=== PATIENT | female | born 1975 | race Hispanic/Latino ===

== ENCOUNTER 2017-02-09 16:37 | Emergency (ER) | payer SELFPAY | END 2017-02-09 18:30 | disposition home or self-care (01) | LOC: NAV ERS 16:37 | DX: J11.1 Influenza due to unidentified influenza virus with other respiratory manifestations (principal); J45.909 Unspecified asthma, uncomplicated; H69.81 Other specified disorders of Eustachian tube, right ear; F32.9 Major depressive disorder, single episode, unspecified; Z87.891 Personal history of nicotine dependence; Z79.2 Long term (current) use of antibiotics; Z79.52 Long term (current) use of systemic steroids; Z79.891 Long term (current) use of opiate analgesic; Z79.899 Other long term (current) drug therapy | CPT/HCPCS: J7620 ==

== ENCOUNTER 2017-04-19 11:38 | Emergency (ER) | payer SELFPAY | END 2017-04-19 12:45 | disposition home or self-care (01) | LOC: NAV ERS 11:38 | DX: J20.9 Acute bronchitis, unspecified (principal); F32.9 Major depressive disorder, single episode, unspecified; F17.200 Nicotine dependence, unspecified, uncomplicated; Z79.899 Other long term (current) drug therapy | CPT/HCPCS: 87081; 87430; 99283 ==

== ENCOUNTER 2017-06-10 16:47 | Emergency (ER) | payer SELFPAY ==
[2017-06-10] MEDS ORDERED: Orphenadrine Citrate 60 MG/2 ML VIAL ONE (17:08)
[2017-06-10] MEDS ORDERED: Ibuprofen 800 MG TAB ONE (17:09)
--- NOTE | 2017-06-10 18:31 | RAD ---
LUMBAR SPINE TWO VIEWS: 06/10/17 HISTORY: Back pain radiating to the left leg. FINDINGS/IMPRESSION: Mild degenerative changes are present. No fracture or dislocation or bony destruction is seen. POS: [facility]
== END 2017-06-10 17:48 | disposition home or self-care (01) ==
LOC: NAV ERS 16:47
DX: M54.5 Low back pain (principal); F32.9 Major depressive disorder, single episode, unspecified; F17.200 Nicotine dependence, unspecified, uncomplicated
CPT/HCPCS: 72100; 96372; J2360

== ENCOUNTER 2017-06-17 09:31 | Emergency (ER) | payer SELFPAY ==
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
== END 2017-06-17 10:30 | disposition home or self-care (01) ==
LOC: NAV ERS 09:31
DX: S61.227A Laceration with foreign body of left little finger without damage to nail, initial encounter (principal); F32.9 Major depressive disorder, single episode, unspecified; F17.210 Nicotine dependence, cigarettes, uncomplicated; Z79.899 Other long term (current) drug therapy; W25.XXXA Contact with sharp glass, initial encounter; Y93.89 Activity, other specified

== ENCOUNTER 2017-09-22 19:59 | Emergency (ER) | payer SELFPAY ==
[2017-09-22] MEDS ORDERED: Ondansetron ODT 4 MG TAB ONE (20:22)
[2017-09-22] MEDS ORDERED: Ibuprofen 800 MG TAB ONE (20:22)
[2017-09-22] MEDS ORDERED: Cyclobenzaprine 10 MG TAB ONE (20:22)
== END 2017-09-22 21:03 | disposition home or self-care (01) ==
LOC: NAV ERS 19:59
DX: S16.1XXA Strain of muscle, fascia and tendon at neck level, initial encounter (principal); G44.309 Post-traumatic headache, unspecified, not intractable; F32.9 Major depressive disorder, single episode, unspecified; F17.210 Nicotine dependence, cigarettes, uncomplicated; Z79.899 Other long term (current) drug therapy; V49.40XA Driver injured in collision with unspecified motor vehicles in traffic accident, initial encounter
CPT/HCPCS: 99283; Q0162

== ENCOUNTER 2018-03-23 16:55 | Emergency (ER) | payer OTHER, SELFPAY ==
[2018-03-23] MEDS ORDERED: Orphenadrine Citrate 60 MG/2 ML VIAL ONE (17:14)
[2018-03-23] MEDS ORDERED: Ketorolac Tromethamine 60 MG/2 ML VIAL ONE (17:15)
== END 2018-03-23 18:04 | disposition home or self-care (01) ==
LOC: NAV ERS 16:55
DX: M54.5 Low back pain (principal); F32.9 Major depressive disorder, single episode, unspecified; F17.210 Nicotine dependence, cigarettes, uncomplicated
CPT/HCPCS: 96372; J1885; J2360

== ENCOUNTER 2018-04-10 19:46 | Emergency (ER) | payer SELFPAY ==
[2018-04-10] MEDS ORDERED: Sulfameth/Trimethoprim DS 800-160mg TAB ONE (20:09)
== END 2018-04-10 20:11 | disposition home or self-care (01) ==
LOC: NAV ERS 19:46
DX: M79.644 Pain in right finger(s) (principal); G40.909 Epilepsy, unspecified, not intractable, without status epilepticus; F32.9 Major depressive disorder, single episode, unspecified; F17.210 Nicotine dependence, cigarettes, uncomplicated; Z79.899 Other long term (current) drug therapy
CPT/HCPCS: 99283

== ENCOUNTER 2020-06-21 04:57 | Emergency (ER) | payer SELFPAY ==
[2020-06-21 05:43] LABS: #Basophils 0.1 thou/uL (0.0-0.2); #Eosinphils 0.1 thou/uL (0.0-0.7); #Lymphocytes 1.9 thou/uL (1.20-3.40); #Monocytes 0.8 thou/uL (0.11-0.59); #Neutrophils 10.1 thou/uL (1.40-6.50); %Basophils 0.5 % (0.0-1.0); %Eosinophils 0.8 % (0.0-10.0); %Lymphocytes 14.4 % (21.0-51.0); %Monocytes 6.1 % (0.0-10.0); %Neutrophils 78.2 % (42.0-75.0); Hemoglobin 13.9 g/dL (12.0-16.0); Mean Corpuscular HGB CONC 31.8 g/dL (32.0-36.0); Mean Corpuscular Volume 94.4 fL (78.0-98.0); Mean Platelet Volume 6.4 fL (7.4-10.4); Platelet Count 308 thou/uL (130-400); RBC Distribution Width 11.2 % (11.5-14.5); Red Blood Cell (RBC) Count 4.64 mill/uL (4.20-5.40); White Blood Cell (WBC) Count 12.9 thou/uL (4.8-10.8)
[2020-06-21 05:45] LABS: Potassium 2.8 mmol/L (3.5-5.1)
[2020-06-21 05:47] LABS: Chloride 106 mmol/L (98-107); Sodium 139 mmol/L (136-145)
[2020-06-21 05:48] LABS: Anion Gap 27 mmol/L (10-20); Carbon Dioxide 9 mmol/L (22-29)
[2020-06-21 05:49] LABS: Albumin 4.5 g/dL (3.5-5.0); Bilirubin, Total 0.3 mg/dL (0.2-1.2); Calcium 9.6 mg/dL (7.8-10.44); Globulin 2.8 g/dL (2.4-3.5); Glucose 89 mg/dL (70-105); Protein, Total 7.3 g/dL (6.0-8.3)
[2020-06-21 05:50] LABS: Alcohol 48 mg/dL (Less than 10)
[2020-06-21 05:52] LABS: ALT (SGPT) 12 U/L (8-55); AST (SGOT) 12 U/L (5-34); Alkaline Phosphatase 82 U/L (40-110); BUN (Urea Nitrogen) 18 mg/dL (7.0-18.7); Calc. Creatinine Clearance 0 mL/min (70-130); Estimated GFR-MDRD 47
[2020-06-21] MEDS ORDERED: Sodium Bicarb 50 MEQ/50 ML Abboject 8.4% SYRINGE ONE (06:10)
[2020-06-21] MEDS ORDERED: NS 0.9% w/ 20 MEQ KCL 1,000 ML ONE (06:12)
[2020-06-21 06:16] LABS: Bilirubin Negative (Negative); Blood, Urine Large (Negative); Clarity Hazy (Clear); Glucose, Urine (Dipstick) Negative (Negative); Ketone, Urine Trace mg/dL (Negative); Leukocyte Trace (Negative); Nitrite Positive (Negative); Protein, Urine (Dipstick) 100 mg/dL (Neg-Trace); Urobilinogen 0.2 mg/dL (Less than 2); pH, Urine 5.5 (5.0-9.0)
[2020-06-21 06:17] LABS: RBC/HPF Greater than 50 HPF (0-3); Squamous Epithelial 0-3 HPF (0-3)
[2020-06-21 06:18] LABS: Bacteria/HPF 2+ HPF (None Seen)
[2020-06-21 06:21] LABS: Base Excess-Venous -8.2 mmol/L (-2.0 to 3.0); CO2 Tension (PvCO2) 33.7 mmHg (40.0-50.0); Calcium, Ionized 1.22 mmol/L (See Comments:); Chloride 104 mmol/L (98-107); Hemoglobin - Calc 15.1 g/dL (12.0-16.0); Sodium 142 mmol/L (138-145); vO2 Saturation-calc 96.2 % (60.0-85.0)
[2020-06-21 06:22] LABS: Amphetamine Detected (NotDetected); Barbiturates Screen Not Detected (NotDetected); Benzodiazepine Screen Not Detected (NotDetected); Cocaine Metabolite Screen Not Detected (NotDetected); Medtox Control Line Valid? VALID (VALID); Methadone Not Detected (NotDetected); Methamphetamine Detected (NotDetected); Opiate Screen Not Detected (NotDetected); Oxycodone Screen Not Detected (NotDetected); Phencyclidine (PCP) Not Detected (NotDetected); THC/Cannabinoid Screen Not Detected (NotDetected); Tricyclic Screen Not Detected (NotDetected)
[2020-06-21] MEDS ORDERED: Potassium Chloride 20 MEQ TAB ONE (07:06)
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
== END 2020-06-21 08:57 | disposition home or self-care (01) ==
LOC: NAV ERS 04:57
DX: E87.6 Hypokalemia (principal); E86.0 Dehydration; F15.20 Other stimulant dependence, uncomplicated; F32.9 Major depressive disorder, single episode, unspecified; F17.210 Nicotine dependence, cigarettes, uncomplicated; Z79.82 Long term (current) use of aspirin; Z79.899 Other long term (current) drug therapy
CPT/HCPCS: 70450; 80053; 80306; 80307; 81003; 81015; 82330; 82550; 82803; 84484; 85025; 93005; 96365; 96366; J3480

== ENCOUNTER 2020-06-27 10:14 | Emergency (ER) | payer OTHER, SELFPAY ==
[2020-06-27] MEDS ORDERED: Sodium Chloride 0.9% 1,000 ML ONE (10:56)
[2020-06-27] MEDS ORDERED: Ondansetron PF 4 MG/2 ML Vial ONE (10:56)
[2020-06-27] MEDS ORDERED: Ibuprofen 200 MG TAB ONE (10:56)
[2020-06-27 11:23] LABS: #Lymphocytes 1.2 thou/uL (1.20-3.40); #Monocytes 0.6 thou/uL (0.11-0.59); #Neutrophils 7.4 thou/uL (1.40-6.50); %Basophils 0.5 % (0.0-1.0); %Eosinophils 0.1 % (0.0-10.0); %Lymphocytes 12.9 % (21.0-51.0); %Monocytes 6.2 % (0.0-10.0); %Neutrophils 80.3 % (42.0-75.0); Hemoglobin 14.4 g/dL (12.0-16.0); Mean Corpuscular HGB CONC 32.4 g/dL (32.0-36.0); Mean Corpuscular Hemoglobin 30.2 pg (27.0-31.0); Mean Corpuscular Volume 93.3 fL (78.0-98.0); Platelet Count 219 thou/uL (130-400); RBC Distribution Width 11.2 % (11.5-14.5); Red Blood Cell (RBC) Count 4.78 mill/uL (4.20-5.40); White Blood Cell (WBC) Count 9.2 thou/uL (4.8-10.8)
[2020-06-27 11:32] LABS: Bilirubin Negative (Negative); Blood, Urine Moderate (Negative); Glucose, Urine (Dipstick) Negative (Negative); Ketone, Urine Negative (Negative); Leukocyte Moderate (Negative); Nitrite Positive (Negative); Protein, Urine (Dipstick) 100 mg/dL (Neg-Trace); Urobilinogen 0.2 mg/dL (Less than 2)
[2020-06-27 11:34] LABS: Clarity Cloudy (Clear)
[2020-06-27 11:35] LABS: BHCG - Serum Negative (NEGATIVE); Pregs Control Bar Appear? YES (CONTROL BAR)
--- NOTE | 2020-06-27 11:35 | RAD ---
PORTABLE CHEST: Date: 06/27/2020 PROVIDED CLINICAL HISTORY: Chest pain. FINDINGS: Comparison with 07/19/2018. Cardiac and mediastinal silhouette is within normal limits. No focal consolidation, pleural fluid, or pneumothorax apparent. IMPRESSION: No evidence for acute cardiopulmonary process. POS: [facility]
[2020-06-27 11:41] LABS: Bacteria/HPF 4+ HPF (None Seen); Squamous Epithelial 0-3 HPF (0-3); WBC/HPF Greater Than 50 HPF (0-3)
[2020-06-27 11:47] LABS: ALT (SGPT) 11 U/L (8-55); AST (SGOT) 9 U/L (5-34); Acetaminophen Less than 6.0 mcg/mL (10.0-30.0); Albumin 4.6 g/dL (3.5-5.0); Alcohol Less than 10 mg/dL (Less than 10); Alkaline Phosphatase 90 U/L (40-110); Anion Gap 16 mmol/L (10-20); BUN (Urea Nitrogen) 17 mg/dL (7.0-18.7); Bilirubin, Total 0.6 mg/dL (0.2-1.2); Calc. Creatinine Clearance 0 mL/min (70-130); Calcium 9.5 mg/dL (7.8-10.44); Chloride 101 mmol/L (98-107); Estimated GFR-MDRD 54; Globulin 2.8 g/dL (2.4-3.5); Glucose 110 mg/dL (70-105); Potassium 3.7 mmol/L (3.5-5.1); Protein, Total 7.4 g/dL (6.0-8.3); Salicylate Less than 8.0 mg/dL (15.0-30.0); Sodium 139 mmol/L (136-145)
[2020-06-27 11:53] LABS: Carbon Dioxide 26 mmol/L (22-29)
[2020-06-27 12:26] LABS: Amphetamine Detected (NotDetected); Barbiturates Screen Not Detected (NotDetected); Benzodiazepine Screen Not Detected (NotDetected); Cocaine Metabolite Screen Not Detected (NotDetected); Medtox Control Line Valid? VALID (VALID); Methadone Not Detected (NotDetected); Methamphetamine Detected (NotDetected); Opiate Screen Not Detected (NotDetected); Oxycodone Screen Not Detected (NotDetected); Phencyclidine (PCP) Not Detected (NotDetected); THC/Cannabinoid Screen Not Detected (NotDetected); Tricyclic Screen Not Detected (NotDetected)
[2020-06-29 11:53] LABS: SARS-CoV-2 MS2 Positive; SARS-CoV-2 N Gene Negative; SARS-CoV-2 S Gene Negative; SARS-CoV-2 by NAA Not Detected (NotDetected); SARS-CoV-2 orf1ab Negative
== END 2020-06-27 13:15 | disposition home or self-care (01) ==
LOC: NAV ERS 10:14
DX: J06.9 Acute upper respiratory infection, unspecified (principal); Z20.828 Contact with and (suspected) exposure to other viral communicable diseases; N39.0 Urinary tract infection, site not specified; F32.9 Major depressive disorder, single episode, unspecified; Z79.82 Long term (current) use of aspirin; Z79.899 Other long term (current) drug therapy
CPT/HCPCS: 71045; 80053; 80306; 80307; 81003; 81015; 84484; 84703; 85025; 87081; 87430; 87635; 87804; 93005; 96361; 96374; J2405; J7050; U0003

== ENCOUNTER 2020-09-20 16:30 | Emergency (ER) | payer OTHER, SELFPAY ==
[2020-09-20] MEDS ORDERED: Mag-Al Plus 1200 MG/1200 MG/120 MG/30 ML UDCUP ONE (16:45)
[2020-09-20] MEDS ORDERED: Lidocaine Viscous Sol 2% 15 ml UD Cup ONE (16:45)
== END 2020-09-20 17:53 | disposition home or self-care (01) ==
LOC: NAV ERS 16:30
DX: K29.00 Acute gastritis without bleeding (principal); F32.9 Major depressive disorder, single episode, unspecified; F17.210 Nicotine dependence, cigarettes, uncomplicated; Z71.6 Tobacco abuse counseling; Z86.73 Personal history of transient ischemic attack (TIA), and cerebral infarction without residual deficits
CPT/HCPCS: 99406

== ENCOUNTER 2020-09-26 12:03 | Emergency (ER) | payer SELFPAY ==
[2020-09-26] MEDS ORDERED: Silver Sulfadiazine 50 GM TUBE ONE ×2 (12:31→12:32)
== END 2020-09-26 12:42 | disposition home or self-care (01) ==
LOC: NAV ERS 12:03
DX: T22.212A Burn of second degree of left forearm, initial encounter (principal); F32.9 Major depressive disorder, single episode, unspecified; F17.210 Nicotine dependence, cigarettes, uncomplicated; Z86.73 Personal history of transient ischemic attack (TIA), and cerebral infarction without residual deficits; Z79.899 Other long term (current) drug therapy; X12.XXXA Contact with other hot fluids, initial encounter
CPT/HCPCS: 16020

== ENCOUNTER 2020-10-09 16:24 | Emergency (ER) | payer SELFPAY ==
[2020-10-10 20:45] LABS: SARS-CoV-2 MS2 Positive; SARS-CoV-2 N Gene Negative; SARS-CoV-2 S Gene Negative; SARS-CoV-2 by NAA Not Detected (NotDetected); SARS-CoV-2 orf1ab Negative
== END 2020-10-09 17:45 | disposition home or self-care (01) ==
LOC: NAV ERS 16:24
DX: R11.2 Nausea with vomiting, unspecified (principal); Z20.828 Contact with and (suspected) exposure to other viral communicable diseases; F32.9 Major depressive disorder, single episode, unspecified; F17.210 Nicotine dependence, cigarettes, uncomplicated
CPT/HCPCS: 87635; 99283; U0003

== ENCOUNTER 2022-03-03 15:27 | Emergency (ER) | payer OTHER, SELFPAY ==
[~2022-03-03 15:27] MED LIST: Iopamidol 370 76% 100 ML VIAL ONE
[2022-03-03 16:05] LABS: #Eosinphils 0.2 thou/uL (0.0-0.7); #Lymphocytes 1.8 thou/uL (1.20-3.40); #Monocytes 0.4 thou/uL (0.11-0.59); #Neutrophils 4.3 thou/uL (1.40-6.50); %Basophils 0.7 % (0.0-1.0); %Eosinophils 3.2 % (0.0-10.0); %Lymphocytes 26.8 % (21.0-51.0); %Neutrophils 63.4 % (42.0-75.0); Hemoglobin 13.4 g/dL (12.0-16.0); Mean Corpuscular Hemoglobin 29.2 pg (27.0-31.0); Mean Corpuscular Volume 94.2 fL (78.0-98.0); Mean Platelet Volume 6.2 fL (7.4-10.4); Platelet Count 369 thou/uL (130-400); RBC Distribution Width 12.4 % (11.5-14.5); Red Blood Cell (RBC) Count 4.58 mill/uL (4.20-5.40); White Blood Cell (WBC) Count 6.8 thou/uL (4.8-10.8)
[2022-03-03 16:15] LABS: BHCG - Serum Negative (NEGATIVE); Pregs Control Bar Appear? YES (CONTROL BAR)
[2022-03-03 16:25] LABS: ALT (SGPT) 24 U/L (8-55); AST (SGOT) 17 U/L (5-34); Albumin 3.9 g/dL (3.5-5.0); Alkaline Phosphatase 88 U/L (40-110); Anion Gap 14 mmol/L (10-20); BUN (Urea Nitrogen) 19 mg/dL (7.0-18.7); Bilirubin, Total 0.4 mg/dL (0.2-1.2); Calc. Creatinine Clearance 0 mL/min (70-130); Calcium 9.2 mg/dL (7.8-10.44); Carbon Dioxide 24 mmol/L (22-29); Chloride 108 mmol/L (98-107); Globulin 2.7 g/dL (2.4-3.5); Glucose 105 mg/dL (70-105); Potassium 3.2 mmol/L (3.5-5.1); Protein, Total 6.6 g/dL (6.0-8.3); Sodium 143 mmol/L (136-145)
[2022-03-03 16:26] LABS: Acetaminophen Less than 10.0 mcg/mL (10.0-30.0); Alcohol Less than 10 mg/dL (Less than 10); Salicylate Less than 8.0 mg/dL (15.0-30.0)
[2022-03-03 17:00] LABS: Bilirubin Small (Negative); Blood, Urine Large (Negative); Glucose, Urine (Dipstick) Negative (Negative); Ketone, Urine Trace mg/dL (Negative); Leukocyte Negative (Negative); Nitrite Positive (Negative); Protein, Urine (Dipstick) 30 mg/dL (Neg-Trace)
[2022-03-03 17:10] LABS: Amphetamine Detected (NotDetected); Barbiturates Screen Not Detected (NotDetected); Benzodiazepine Screen Not Detected (NotDetected); Cocaine Metabolite Screen Not Detected (NotDetected); Medtox Control Line Valid? VALID (VALID); Methadone Not Detected (NotDetected); Methamphetamine Detected (NotDetected); Opiate Screen Not Detected (NotDetected); Oxycodone Screen Not Detected (NotDetected); Phencyclidine (PCP) Not Detected (NotDetected); THC/Cannabinoid Screen Not Detected (NotDetected); Tricyclic Screen Not Detected (NotDetected)
[2022-03-03 17:12] LABS: Clarity Hazy (Clear)
[2022-03-03 17:13] LABS: Specific Gravity, Urine 1.031 (1.002-1.036)
[2022-03-03 17:15] LABS: Bacteria/HPF 1+ HPF (None Seen); Mucous/LPF 1+ LPF (<2+); RBC/HPF 0-3 HPF (0-3); Squamous Epithelial 0-3 HPF (0-3); WBC/HPF 0-3 HPF (0-3)
[2022-03-03 21:37] LABS: Free T4 (Free Thyroxine) 1.16 ng/dL (0.70-1.48)
== END 2022-03-03 17:26 | disposition home or self-care (01) ==
LOC: NAV ERS 15:27
DX: R55 Syncope and collapse (principal); E05.90 Thyrotoxicosis, unspecified without thyrotoxic crisis or storm; E04.1 Nontoxic single thyroid nodule; F41.0 Panic disorder [episodic paroxysmal anxiety]; F17.210 Nicotine dependence, cigarettes, uncomplicated
CPT/HCPCS: 70450; 70492; 80053; 80306; 80307; 81003; 81015; 84439; 84443; 84479; 84481; 84484; 84703; 85025; 93005; 94760; Q9967

== ENCOUNTER 2022-08-01 21:30 | Emergency (ER) | payer SELFPAY | END 2022-08-01 22:27 | disposition home or self-care (01) | LOC: NAV ERS 21:30 | DX: R05.9 Cough, unspecified (principal); R06.02 Shortness of breath; F17.210 Nicotine dependence, cigarettes, uncomplicated | CPT/HCPCS: 99283 ==

== ENCOUNTER 2022-09-08 02:27 | Emergency (ER) | payer SELFPAY ==
[2022-09-08] MEDS ORDERED: Mag-Al Plus 1200 MG/1200 MG/120 MG/30 ML UDCUP ONE (02:54)
[2022-09-08] MEDS ORDERED: Pantoprazole 40 MG VIAL ONE (02:54)
[2022-09-08] MEDS ORDERED: Lidocaine Viscous Sol 2% 15 ml UD Cup ONE (02:54)
[2022-09-08 03:00] LABS: #Basophils 0.1 thou/uL (0.0-0.2); #Eosinphils 0.3 thou/uL (0.0-0.7); #Lymphocytes 2.7 thou/uL (1.20-3.40); #Monocytes 0.6 thou/uL (0.11-0.59); #Neutrophils 5.3 thou/uL (1.40-6.50); %Basophils 0.8 % (0.0-1.0); %Eosinophils 2.9 % (0.0-10.0); %Lymphocytes 30.7 % (21.0-51.0); %Monocytes 6.2 % (0.0-10.0); %Neutrophils 59.4 % (42.0-75.0); Hemoglobin 13.7 g/dL (12.0-16.0); Mean Corpuscular HGB CONC 32.7 g/dL (32.0-36.0); Mean Corpuscular Hemoglobin 30.7 pg (27.0-31.0); Mean Corpuscular Volume 93.8 fL (78.0-98.0); Mean Platelet Volume 6.4 fL (7.4-10.4); Platelet Count 300 thou/uL (130-400); RBC Distribution Width 11.8 % (11.5-14.5); Red Blood Cell (RBC) Count 4.46 mill/uL (4.20-5.40); White Blood Cell (WBC) Count 8.8 thou/uL (4.8-10.8)
[2022-09-08 03:10] LABS: Bilirubin Negative (Negative); Blood, Urine Trace (Negative); Clarity Clear (Clear); Glucose, Urine (Dipstick) Negative (Negative); Ketone, Urine Negative (Negative); Leukocyte Negative (Negative); Nitrite Negative (Negative); Protein, Urine (Dipstick) Negative (Neg-Trace); Specific Gravity, Urine 1.025 (1.005-1.030); Urobilinogen 0.2 mg/dL (Less than 2)
[2022-09-08 03:12] LABS: Pregnancy Test - Urine (BHCG) Negative (Negative); Pregu Control Background? CLEAR/WHITE (CLR/WHITE); Pregu Control Bar Appear? YES (CONTROL BAR); Specific Gravity 1.025 (1.002-1.036)
[2022-09-08 03:15] LABS: ALT (SGPT) 12 U/L (8-55); AST (SGOT) 12 U/L (5-34); Albumin 3.9 g/dL (3.5-5.0); Alkaline Phosphatase 77 U/L (40-110); Anion Gap 16 mmol/L (10-20); BUN (Urea Nitrogen) 16 mg/dL (7.0-18.7); Bilirubin, Total 0.2 mg/dL (0.2-1.2); Calc. Creatinine Clearance 0 mL/min (70-130); Calcium 8.4 mg/dL (7.8-10.44); Carbon Dioxide 22 mmol/L (22-29); Chloride 107 mmol/L (98-107); Estimated GFR 96; Globulin 2.3 g/dL (2.4-3.5); Glucose 94 mg/dL (70-105); Lipase 23 U/L (8-78); Potassium 3.8 mmol/L (3.5-5.1); Protein, Total 6.2 g/dL (6.0-8.3); Sodium 141 mmol/L (136-145)
[2022-09-08 03:16] LABS: Squamous Epithelial 0-3 HPF (0-3); WBC/HPF 0-3 HPF (0-3)
[2022-09-08 03:17] LABS: Bacteria/HPF 2+ HPF (None Seen); Triple Phosphate Crystal Rare HPF (None Seen)
[2022-09-08] MEDS ORDERED: Sucralfate 1 GM TAB ONE (03:28)
== END 2022-09-08 03:37 | disposition home or self-care (01) ==
LOC: NAV ERS 02:27
DX: K29.00 Acute gastritis without bleeding (principal); F17.210 Nicotine dependence, cigarettes, uncomplicated
CPT/HCPCS: 80053; 81003; 81015; 81025; 83690; 84484; 85025; 93005; 94760; 96374; C9113

== ENCOUNTER 2023-02-25 23:14 | Emergency (ER) | payer SELFPAY ==
[2023-02-26] MEDS ORDERED: Ondansetron ODT 4 MG TAB ONE
[2023-02-26] MEDS ORDERED: Ibuprofen 800 MG TAB ONE
== END 2023-02-26 00:18 | disposition home or self-care (01) ==
LOC: NAV ERS 23:14
DX: B34.9 Viral infection, unspecified (principal)
CPT/HCPCS: Q0162

== ENCOUNTER 2023-03-26 08:49 | Emergency (ER) | payer SELFPAY ==
[2023-03-26] MEDS ORDERED: Lidocaine 1% (PF) 30 ML VIAL ONE (09:20)
[2023-03-26] MEDS ORDERED: Naproxen 500 MG TAB ONE (09:20)
[2023-03-26] MEDS ORDERED: Sulfameth/Trimethoprim DS 800-160mg TAB ONE (09:20)
== END 2023-03-26 10:04 | disposition home or self-care (01) ==
LOC: NAV ERS 08:49
DX: L03.012 Cellulitis of left finger (principal); I10 Essential (primary) hypertension; F17.210 Nicotine dependence, cigarettes, uncomplicated
CPT/HCPCS: 10060; 36415; 87070; 87205; J2001

== ENCOUNTER 2023-10-10 06:51 | Emergency (ER) | payer SELFPAY ==
[2023-10-10 08:22] LABS: #Eosinphils 0.1 thou/uL (0.0-0.7); #Lymphocytes 1.9 thou/uL (1.20-3.40); #Monocytes 0.5 thou/uL (0.11-0.59); #Neutrophils 5.1 thou/uL (1.40-6.50); %Basophils 0.6 % (0.0-1.0); %Eosinophils 1.6 % (0.0-10.0); %Lymphocytes 24.4 % (21.0-51.0); %Monocytes 6.3 % (0.0-10.0); %Neutrophils 67.1 % (42.0-75.0); Hemoglobin 14.6 g/dL (12.0-16.0); Mean Corpuscular HGB CONC 33.9 g/dL (32.0-36.0); Mean Corpuscular Hemoglobin 31.1 pg (27.0-31.0); Mean Corpuscular Volume 91.8 fl (78.0-98.0); Mean Platelet Volume 6.1 fL (7.4-10.4); Platelet Count 263 10x3/uL (130-400); RBC Distribution Width 11.8 % (11.5-14.5); Red Blood Cell (RBC) Count 4.69 mill/uL (4.20-5.40); White Blood Cell (WBC) Count 7.6 10x3/uL (4.8-10.8)
[2023-10-10 08:26] LABS: Bilirubin Negative (Negative); Blood, Urine Small (Negative); Clarity Clear (Clear); Glucose, Urine (Dipstick) Negative (Negative); Ketone, Urine Negative (Negative); Leukocyte Negative (Negative); Nitrite Negative (Negative); Protein, Urine (Dipstick) Negative (Neg-Trace)
[2023-10-10 08:35] LABS: ALT (SGPT) 17 U/L (8-55); AST (SGOT) 15 U/L (5-34); Albumin 4.2 g/dL (3.5-5.0); Alkaline Phosphatase 79 U/L (40-110); Anion Gap 13 mmol/L (10-20); BUN (Urea Nitrogen) 12 mg/dL (7.0-18.7); Bilirubin, Total 0.4 mg/dL (0.2-1.2); Calc. Creatinine Clearance 0 mL/min (70-130); Carbon Dioxide 23 mmol/L (22-29); Chloride 107 mmol/L (98-107); Estimated GFR 88; Glucose 93 mg/dL (70-105); Potassium 3.9 mmol/L (3.5-5.1); Protein, Total 7.2 g/dL (6.0-8.3); Sodium 139 mmol/L (136-145)
[2023-10-10] MEDS ORDERED: Sodium Chloride 0.9% 1,000 ML ONE (08:46)
[2023-10-10] MEDS ORDERED: Morphine 4 MG/ML VIAL ONE (08:46)
[2023-10-10 08:50] LABS: Specific Gravity, Urine 1.025 (1.002-1.036)
[2023-10-10 08:55] LABS: Pregnancy Test - Urine (BHCG) Negative (Negative); Pregu Control Background? CLEAR/WHITE (CLR/WHITE); Pregu Control Bar Appear? YES (CONTROL BAR); Specific Gravity 1.025 (1.002-1.036)
[2023-10-10 08:57] LABS: Bacteria/HPF 1+ HPF (None Seen); CAUTI Indications for Culture Pelvic or flank pain; RBC/HPF 0-3 HPF (0-3); WBC/HPF None Seen HPF (0-3)
[2023-10-10 08:58] LABS: Urine Culture Reflex No No
== END 2023-10-10 10:10 | disposition home or self-care (01) ==
LOC: NAV ERS 06:51
DX: M54.31 Sciatica, right side (principal); R10.9 Unspecified abdominal pain; F17.210 Nicotine dependence, cigarettes, uncomplicated
CPT/HCPCS: 74177; 80053; 81001; 81025; 85025; 96374; J2270; J7050

== ENCOUNTER 2024-10-18 19:45 | Emergency (ER) | payer SELFPAY ==
[2024-10-18] MEDS ORDERED: Ibuprofen 200 MG TAB ONE (20:02)
[2024-10-18 20:39] LABS: #Lymphocytes 0.6 thou/uL (1.20-3.40); #Monocytes 0.4 thou/uL (0.11-0.59); #Neutrophils 3.8 thou/uL (1.40-6.50); %Basophils 0.5 % (0.0-1.0); %Eosinophils 0.8 % (0.0-10.0); %Lymphocytes 12.8 % (21.0-51.0); %Monocytes 7.8 % (0.0-10.0); %Neutrophils 78.2 % (42.0-75.0); Hematocrit 41.1 % (36.0-47.0); Hemoglobin 13.7 g/dL (12.0-16.0); Mean Corpuscular HGB CONC 33.4 g/dL (32.0-36.0); Mean Corpuscular Volume 89.8 fl (78.0-98.0); Mean Platelet Volume 5.9 fL (7.4-10.4); Platelet Count 213 10x3/uL (130-400); RBC Distribution Width 11.2 % (11.5-14.5); Red Blood Cell (RBC) Count 4.57 mill/uL (4.20-5.40); White Blood Cell (WBC) Count 4.8 10x3/uL (4.8-10.8)
[2024-10-18 20:40] LABS: BHCG - Serum Negative (NEGATIVE); Pregs Control Bar Appear? YES (CONTROL BAR)
[2024-10-18 20:45] LABS: ALT (SGPT) 100 U/L (8-55); AST (SGOT) 56 U/L (5-34); Albumin 3.9 g/dL (3.5-5.0); Alkaline Phosphatase 80 U/L (40-110); Anion Gap 15 mmol/L (10-20); BUN (Urea Nitrogen) 12 mg/dL (7.0-18.7); Bilirubin, Total 0.3 mg/dL (0.2-1.2); Calc. Creatinine Clearance 0 mL/min (70-130); Calcium 8.5 mg/dL (7.8-10.44); Carbon Dioxide 25 mmol/L (22-29); Chloride 104 mmol/L (98-107); Estimated GFR 78; Glucose 96 mg/dL (70-105); Potassium 3.8 mmol/L (3.5-5.1); Protein, Total 6.9 g/dL (6.0-8.3); Sodium 140 mmol/L (136-145)
[2024-10-18] MEDS ORDERED: guaiFENesin ER 600 MG TAB ONE (21:29)
[2024-10-18] MEDS ORDERED: methylPREDNISolone Sod Succ/PF 125 MG/2 ML VIAL ONE (21:29)
== END 2024-10-18 21:39 | disposition home or self-care (01) ==
LOC: NAV ERS 19:45
DX: J20.8 Acute bronchitis due to other specified organisms (principal); F17.210 Nicotine dependence, cigarettes, uncomplicated
CPT/HCPCS: 71046; 80053; 83605; 84703; 85025; 87040; 87428; 96374; J2919

== ENCOUNTER 2024-11-21 04:14 | Emergency (ER) | payer SELFPAY ==
[2024-11-21 04:52] LABS: #Lymphocytes 2.1 thou/uL (1.20-3.40); #Monocytes 0.6 thou/uL (0.11-0.59); %Basophils 0.3 % (0.0-1.0); %Eosinophils 0.1 % (0.0-10.0); %Lymphocytes 18.1 % (21.0-51.0); %Monocytes 4.8 % (0.0-10.0); %Neutrophils 76.7 % (42.0-75.0); Bilirubin Negative (Negative); Blood, Urine Negative (Negative); Clarity Clear (Clear); Glucose, Urine (Dipstick) Negative (Negative); Hematocrit 35.6 % (36.0-47.0); Hemoglobin 11.8 g/dL (12.0-16.0); Ketone, Urine 15 mg/dL (Negative); Leukocyte Negative (Negative); Mean Corpuscular HGB CONC 33.2 g/dL (32.0-36.0); Mean Corpuscular Volume 87.6 fl (78.0-98.0); Mean Platelet Volume 6.3 fL (7.4-10.4); Nitrite Negative (Negative); Platelet Count 278 10x3/uL (130-400); Pregnancy Test - Urine (BHCG) Negative (Negative); Pregu Control Background? CLEAR/WHITE (CLR/WHITE); Pregu Control Bar Appear? YES (CONTROL BAR); Protein, Urine (Dipstick) 30 mg/dL (Neg-Trace); RBC Distribution Width 11.1 % (11.5-14.5); Red Blood Cell (RBC) Count 4.06 mill/uL (4.20-5.40); Specific Gravity 1.025 (1.002-1.036); Urobilinogen 0.2 mg/dL (Less than 2); White Blood Cell (WBC) Count 11.7 10x3/uL (4.8-10.8)
[2024-11-21 04:54] LABS: Bacteria/HPF None Seen HPF (None Seen); CAUTI Indications for Culture Dysuria,urgency,freq; RBC/HPF None Seen HPF (0-3); WBC/HPF 0-3 HPF (0-3)
[2024-11-21 04:56] LABS: Urine Culture Reflex No No
[2024-11-21] MEDS ORDERED: Ondansetron PF 4 MG/2 ML Vial ONE (04:58)
[2024-11-21 04:59] LABS: Amphetamine Detected (NotDetected); Barbiturates Screen Detected (NotDetected); Benzodiazepine Screen Not Detected (NotDetected); Cocaine Metabolite Screen Not Detected (NotDetected); Methadone Not Detected (NotDetected); Methamphetamine Detected (NotDetected); Opiate Screen Not Detected (NotDetected); Oxycodone Screen Not Detected (NotDetected); Phencyclidine (PCP) Not Detected (NotDetected); THC/Cannabinoid Screen Not Detected (NotDetected); Tricyclic Screen Detected (NotDetected)
[2024-11-21 05:10] LABS: Acetaminophen Less than 10 mcg/mL (Less than 10); Salicylate Less than 8.0 mg/dL (Less than 8.0)
[2024-11-21 05:11] LABS: Base Excess-Venous -5.2 mmol/L (-2.0 to 3.0); Bicarbonate (HCO3v) 19.9 mmol/L (22.0-28.0); CO2 Tension (PvCO2) 36.5 mmHg (42.0-51.0); Chloride 111 mmol/L (98-107); Hemoglobin - Calc 11.7 g/dL (12.0-16.0); Potassium 3.1 mmol/L (3.5-5.1); Sodium 144 mmol/L (138-145); vO2 Saturation-calc 78.2 % (60.0-85.0)
[2024-11-21 05:13] LABS: ALT (SGPT) 71 U/L (8-55); AST (SGOT) 38 U/L (5-34); Albumin 3.3 g/dL (3.5-5.0); Alkaline Phosphatase 69 U/L (40-110); Anion Gap 18 mmol/L (10-20); BUN (Urea Nitrogen) 19 mg/dL (7.0-18.7); Bilirubin, Total Less than 0.2 mg/dL (0.2-1.2); Calc. Creatinine Clearance 0 mL/min (70-130); Calcium 8.4 mg/dL (7.8-10.44); Carbon Dioxide 21 mmol/L (22-29); Chloride 108 mmol/L (98-107); Estimated GFR 71; Globulin 2.7 g/dL (2.4-3.5); Glucose 136 mg/dL (70-105); Potassium 3.3 mmol/L (3.5-5.1); Sodium 144 mmol/L (136-145)
[2024-11-21] MEDS ORDERED: Sodium Chloride 0.9% 1,000 ML ONE ×2 (05:15→05:24)
[2024-11-21 05:24] LABS: Lipase 29 U/L (8-78); Magnesium 2.1 mg/dL (1.6-2.6)
[2024-11-21 05:27] LABS: Troponin I Less than 0.010 ng/mL (< 0.028)
[2024-11-21 05:37] LABS: INR-International Normal Ratio 1.1; Prothrombin Time 14.2 sec (12.0-14.7)
[2024-11-21 05:38] LABS: PTT 30.6 sec (22.9-36.1)
[2024-11-21] MEDS ORDERED: Sodium Chloride 0.9% 100 ML ONE (06:07)
[2024-11-21] MEDS ORDERED: NOREPINEPHRINE 8 MG/250 ML-D5W 250 ML ONE (06:07)
[2024-11-21] MEDS ORDERED: Cefepime 2 GM VIAL ONE (06:07)
[2024-11-21] MEDS ORDERED: Pantoprazole 40 MG VIAL ONE (06:25)
== END 2024-11-21 07:00 | disposition short-term general hospital (02) ==
LOC: EEVIPCON 04:14 → NAV ERS 04:14
DX: T39.312A Poisoning by propionic acid derivatives, intentional self-harm, initial encounter (principal); A41.9 Sepsis, unspecified organism; R65.21 Severe sepsis with septic shock; R11.2 Nausea with vomiting, unspecified; F10.129 Alcohol abuse with intoxication, unspecified; I95.9 Hypotension, unspecified; F17.210 Nicotine dependence, cigarettes, uncomplicated
CPT/HCPCS: 36415; 51701; 80053; 80306; 80307; 81001; 81025; 82330; 82550; 82803; 83605; 83690; 83735; 84443; 84484; 85025; 85610; 85730; 87040; 93005; 94760; 96361; 96374; 96375; J0692; J2405; J2470; J7030

== ENCOUNTER 2025-09-17 08:12 | Emergency (ER) | payer SELFPAY | END 2025-09-17 09:00 | disposition home or self-care (01) | LOC: NAV ERS 08:12 | DX: M65.4 Radial styloid tenosynovitis [de Quervain] (principal); F17.290 Nicotine dependence, other tobacco product, uncomplicated | CPT/HCPCS: 96372; 99283; J1885 ==